=== PATIENT | male | born 1980 | race Caucasian/White ===

== ENCOUNTER 2017-05-11 11:20 | Emergency (ER) | payer SELFPAY ==
--- NOTE | 2017-05-11 11:39 | ER Document Report ---
ED Fall - General Chief Complaint: Rib Pain Stated Complaint: BACK PAIN Time Seen by Provider: 05/11/17 11:37 Notes: Patient slipped on wet pavement Monday and fell landing on cement, on his left side, primarily in the left rib region. It has been painful ever since, but made much worse yesterday when he suddenly sneezed and he felt a pop in the left lateral and posterior mid rib region. It hurts for him to breathe, but he does not feel short of breath. Denies any abdominal pain, in particular no pain in the left upper quadrant. No vomiting and no diarrhea. Denies fever. Hurts worse when he tries to stand up or bend or cough or sneeze. TRAVEL OUTSIDE OF THE [place] IN LAST 30 DAYS: No - Related data Allergies/Adverse Reactions: cefaclor [From Ceclor] Allergy (Verified 08/28/16 12:21) Past Medical History - Social History Smoking Status: Current Every Day Smoker Chew tobacco use (# tins/day): No Frequency of alcohol use: Social Drug Abuse: None Family History: Reviewed & Not Pertinent Patient has suicidal ideation: No Patient has homicidal ideation: No Past Surgical History: Reports: Hx Tonsillectomy Review of Systems - Review of Systems Notes: REVIEW OF SYSTEMS: CONSTITUTIONAL : Denies fever. EENT: Denies eye, ear, nose or mouth or throat pain or other symptoms. CARDIOVASCULAR: See HPI regarding pain in the left lateral rib region. No anterior cardiac type pain. RESPIRATORY: Denies cough, chest congestion, or shortness of breath. Only hurts to take a deep breath. GASTROINTESTINAL: Denies abdominal pain or nausea, vomiting, or diarrhea. No left upper quadrant pain or tenderness. GENITOURINARY: Denies difficulty or painful urinating, urinary frequency, blood in urine. MUSCULOSKELETAL: Denies back or neck pain. Denies joint pain or swelling. SKIN: Denies rash or skin lesions. NEUROLOGICAL: Denies LOC or altered mental status. Denies headache. Denies sensory loss or motor deficits. ALL OTHER SYSTEMS REVIEWED AND NEGATIVE. Physical Exam - Vital signs Vitals: Temp Pulse Resp BP Pulse Ox 97.9 F 97 20 153/100 H 100 05/11/17 11:24 05/11/17 11:24 05/11/17 11:24 05/11/17 11:24 05/11/17 11:24 Interpretation: Normal - Notes Notes: PHYSICAL EXAMINATION: GENERAL: Well-appearing, in no acute distress. Appears uncomfortable to move, stand up from sitting, etc. Vital signs are all essentially normal. HEAD: Atraumatic, normocephalic. NECK: Normal range of motion, supple. LUNGS: Breath sounds clear and equal bilaterally. Tender to palpate the left middle and lower ribs in the posterior lateral aspect of the rib cage. HEART: Regular rate and rhythm without murmurs. ABDOMEN: Soft, nontender. No guarding or rebound. No left upper quadrant tenderness. BACK: No tenderness throughout entire back. No spinal tenderness of any of the thoracic or lumbar vertebrae. EXTREMITIES: Normal range of motion without pain. NEUROLOGICAL: Normal speech, normal gait. Normal sensory, motor, and reflex exams. Awake, alert, and oriented x3. Cranial nerves normal. PSYCH: Normal mood, normal affect. SKIN: Warm, dry, no rashes. Course - Vital Signs Vital signs: Temp Pulse Resp BP Pulse Ox 98.1 F 102 H 17 140/101 H 93 05/11/17 12:19 05/11/17 12:19 05/11/17 12:19 05/11/17 12:19 05/11/17 12:19 Discharge - Discharge Clinical Impression: Fall with injury Qualifiers: Encounter type: initial encounter Qualified Code(s): W19.XXXA - Unspecified fall, initial encounter Fracture, rib Qualifiers: Encounter type: initial encounter Rib fracture type: single rib Fracture type: closed Laterality: right Qualified Code(s): S22.31XA - Fracture of one rib, right side, initial encounter for closed fracture Condition: Stable Disposition: HOME, SELF-CARE Additional Instructions: Rib Injuries and Fractures You have been diagnosed as having either bruised or broken ribs. These two injuries are treated in the same way. It will usually take four to six weeks for these injured ribs to heal. Sometimes, rib belts or anesthetic injections of the chest wall help reduce the pain. If you are using a rib belt, you should cough or take a deep breath at least every hour or two to prevent lung complications. You should not engage in any strenuous physical activity until released by your physician. The usual rule is "if it hurts, don't do it." Rib fractures can lead to serious lung complications including lung collapse, hemorrhage, and pneumonia. You should call the physician or return at once if any of the following occur: (1) Fever or chills. (2) Persistent cough, coughing up blood, or shortness of breath. (3) Increasing pain. (4) Weakness, lightheadedness, or fainting. MUSCLE STRAIN: You have strained a muscle -- torn the fibers within the muscle. This often occurs with strenuous exertion, or during an injury that suddenly stretches the muscle. The seriousness of a strain varies. Some strains heal within days, others cause problems for months. X-rays cannot show a muscle strain. X-rays are taken only if symptoms suggest that a fracture could be present. The usual treatment of a muscle strain is rest and ice packs. Sometimes, a sling, splint, or crutches may be necessary to rest the muscle. The muscle can be used again once pain subsides. Severe strains require a special exercise and stretching program to prevent permanent stiffness and disability. Your doctor will advise you if this will be necessary. Call the doctor immediately if pain or swelling becomes severe, or if numbness or discoloration develop. CONTUSION: Your injury has resulted in a contusion -- a crushing of the deep tissues. No injury to important structures was detected during the physician's exam. Contusions vary in the amount of pain they cause, and in the length of time required for healing. Typically, the area will become bruised, and will remain painful to touch for two or three weeks. However, most patients are back to working and playing within a few days. After the initial period of rest and cold-packs, your symptoms (together with the doctor's recommendations) will determine how rapidly you can get back to full activity. Usually this means "do what feels okay, but don't do things that hurt." If re-examination was recommended, it's important to follow up as instructed. Call the doctor or return any time if pain increases, if swelling becomes severe, if you develop numbness or weakness in an injured extremity, or if any other alarming symptoms occur. USE OF TYLENOL (ACETAMINOPHEN): Acetaminophen may be taken for pain relief or fever control. It's much safer than aspirin, offering a wider range of "safe" dosages. It is safe during . Some brand names are Tylenol, Panadol, Datril, Anacin 3, Tempra, and Liquiprin. Acetaminophen can be repeated every four hours. The following are maximum recommended dosages: WEIGHT Dose Drops Elixir Chewable( 80mg) (LBS.) drprs=droppers tsp=teaspoon >89 pounds or adults 650 mg to 900 mg Acetaminophen can be repeated every four hours. Maximum dose not to exceed 4000 mg a day. These maximum recommended dosages are slightly higher than the dosages written on the product container, but these dosages are very safe and below the toxic dosage for acetaminophen. WARM PACKS: After approximately two or 3 days, apply gentle heat (such as a heating pad or hot water bottle) for about 20 to 30 minutes about every two hours -- at least four times daily. Warmth and elevation will help you make a more rapid recovery, and will ease the pain considerably. Do not use HOT heat, and never apply heat for longer than 30 minutes. The continuous heat can invisibly damage skin and muscles -- even when no burn is seen on the surface. Damaged muscles can make you MORE sore. MUSCLE RELAXERS: Muscle relaxing medications are usually prescribed for acute muscle spasm or injury to the neck and back. They are often combined with antiinflammatory pain medication for increased relief. You may stop the muscle relaxer when the pain and stiffness have improved. Start the medication again if spasms recur. Muscle relaxers may cause drowsiness, especially with the first dose. Do not operate machinery or drive while under the effects of the medication. Most muscle relaxers last up to 24 hours. Do not combine the medication with alcohol. ORAL NARCOTIC MEDICATION: You have been given a prescription for pain control. This medication is a narcotic. It's best taken with food, as nausea can result if taken on an empty stomach. Don't operate machinery or drive within six hours of taking this medication. Do not combine this medicine with alcohol, or with any medication which can cause sedation (such as cold tablets or sleeping pills) unless you get permission from the physician. Narcotics tend to cause constipation. If possible, drink plenty of fluids and eat a diet high in fiber and fruits. FOLLOW-UP CARE: If you have been referred to a physician for follow-up care, call the physician s office for an appointment as you were instructed or within the next two days. If you experience worsening or a significant change in your symptoms, notify the physician immediately or return to the Emergency Department at any time for re-evaluation. Prescriptions: Cyclobenzaprine HCl [Flexeril 5 mg Tablet] 5 mg PO TID #20 tablet Oxycodone HCl/Acetaminophen [Percocet 5-325 mg Tablet] 1 - 2 tab PO Q4H PRN #15 tablet PRN Reason:
--- NOTE | 2017-05-11 12:05 | RADIOLOGY REPORT (SQ) ---
EXAM DESCRIPTION: RIBS LEFT W/PA CHEST COMPLETED DATE/TIME: 05/11/2017 11:47 am REASON FOR STUDY: fell on left lateral chest/ribs COMPARISON: None. TECHNIQUE: Frontal view of the chest and additional views of the left ribs acquired. NUMBER OF VIEWS: Five views LIMITATIONS: None. FINDINGS: FRONTAL CXR: There is mild subsegmental atelectasis in the lung bases. There is no pneumo thorax RIBS: On a single image there is questionable fracture of the left 10th ribs. There is possible that the low-density lines that cross the rib represent soft tissue shadows. OTHER: No other significant finding. IMPRESSION: Possible left 10th rib fracture. This is only seen on a single view. COMMENT: SITE OF TRAUMA/COMPLAINT MARKED/STAMP COMPLETED: No TECHNICAL DOCUMENTATION: JOB ID: [id number] [employer]- All Rights Reserved
[2017-05-11 12:21] VITALS: BP 140/101
== END 2017-05-11 12:34 | disposition home or self-care (01) ==
LOC: ER 11:20
DX: S22.31XA Fracture of one rib, right side, initial encounter for closed fracture (principal); W01.0XXA Fall on same level from slipping, tripping and stumbling without subsequent striking against object, initial encounter; F17.200 Nicotine dependence, unspecified, uncomplicated; Z88.1 Allergy status to other antibiotic agents
CPT/HCPCS: 99283

== ENCOUNTER 2018-09-22 10:22 | Inpatient (IN) | payer SELFPAY ==
[2018-09-22] MEDS ORDERED: NORMAL SALINE 1000 ML 1,000 ML IV ONE (10:35)
--- NOTE | 2018-09-22 10:37 | ER Document Report ---
ED Medical Screen (RME) - General Chief Complaint: Vomiting/Diarrhea Stated Complaint: VOMITING Time Seen by Provider: 09/22/18 10:34 Mode of Arrival: Ambulatory Information source: Patient TRAVEL OUTSIDE OF THE [place] IN LAST 30 DAYS: No - HPI Patient complains to provider of: vomiting blood Onset: Yesterday - pt with episode of hematemesis and black diarrhea starting yesterday - Related Data Allergies/Adverse Reactions: cefaclor [From Ceclor] Allergy (Verified 09/22/18 10:23) Past Medical History - Social History Chew tobacco use (# tins/day): No Frequency of alcohol use: 10 drinks aday Drug Abuse: None Renal/ Medical History: Denies: Hx Peritoneal Dialysis Past Surgical History: Reports: Hx Tonsillectomy Physical Exam - Vital signs Vitals: Temp Pulse Resp BP Pulse Ox 97.9 F 112 H 18 169/96 H 98 09/22/18 10:25 09/22/18 10:25 09/22/18 10:25 09/22/18 10:25 09/22/18 10:25 Course - Vital Signs Vital signs: Temp Pulse Resp BP Pulse Ox 97.9 F 112 H 18 169/96 H 98 09/22/18 10:25 09/22/18 10:25 09/22/18 10:25 09/22/18 10:25 09/22/18 10:25
--- NOTE | 2018-09-22 11:25 | ER Document Report ---
ED GI/ - General Mode of Arrival: Ambulatory Information source: Patient TRAVEL OUTSIDE OF THE [place] IN LAST 30 DAYS: No <WILLIAM CANNON - Last Filed: 09/22/18 14:59> <TAVON OLIVIER - Last Filed: 09/22/18 19:28> - General Chief Complaint: Vomiting/Diarrhea Stated Complaint: VOMITING Time Seen by Provider: 09/22/18 10:34 Notes: 38-year-old male who presents to the emergency department today with complaints of noticing blood in his vomit and stool. Patient states he is a heavy drinker, stating that he drinks "10 shots of rum a day". Patient states that he has not been abruptly vomiting blood, his vomit is always after a coughing spell. Patient states he believes he has a cold as he has had some nasal congestion with this cough. Patient states the rest of his family has also had these same respiratory symptoms. Patient states that he estimates when he vomits up the blood it is about a handful each time. Patient states that about 1 week ago he noticed some blood in his nose but has not had any other nosebleeds and has not had any blood in his snot. Patient states that his stool is black in color, stating that it is sticking to the sides of the toilet. Patient denies history of GI bleeds and denies heavy usage of NSAIDs. Patient states he has had mild abdominal pain as well. (WILLIAM CANNON) - Related Data Allergies/Adverse Reactions: cefaclor [From Ceclor] Allergy (Verified 09/22/18 10:23) Past Medical History - General Information source: Patient - Social History Smoking Status: Current Every Day Smoker Cigarette use (# per day): Yes Chew tobacco use (# tins/day): No Frequency of alcohol use: Heavy - "10 shots a day" Drug Abuse: None Lives with: Family Family History: Reviewed & Not Pertinent Patient has suicidal ideation: No Patient has homicidal ideation: No Renal/ Medical History: Denies: Hx Peritoneal Dialysis Past Surgical History: Reports: Hx Tonsillectomy <WILLIAM CANNON - Last Filed: 09/22/18 14:59> Review of Systems - Review of Systems Constitutional: No symptoms reported EENT: See HPI, Nose congestion, Other - Epistaxis Cardiovascular: No symptoms reported Respiratory: See HPI, Cough Gastrointestinal: See HPI, Abdominal pain, Vomiting, Blood in vomit, Black s tools Genitourinary: No symptoms reported Male Genitourinary: No symptoms reported Musculoskeletal: No symptoms reported Skin: No symptoms reported Hematologic/Lymphatic: No symptoms reported Neurological/Psychological: No symptoms reported -: Yes All other systems reviewed and negative <WILLIAM CANNON - Last Filed: 09/22/18 14:59> Physical Exam <WILLIAM CANNON - Last Filed: 09/22/18 14:59> - Vital signs Vitals: Temp Pulse Resp BP Pulse Ox 97.9 F 112 H 18 169/96 H 98 09/22/18 10:25 09/22/18 10:25 09/22/18 10:25 09/22/18 10:25 09/22/18 10:25 - Notes Notes: PHYSICAL EXAM GENERAL: Alert, interacts well. No acute distress. HEAD: Normocephalic, atraumatic. EYES: Pupils equal, round, and reactive to light. Extraocular movements intact. ENT: Oral mucosa moist, tongue midline, no intraoral lesions or bleeding. Nares patent without any active bleeding/dried blood, no nasal septal hematoma, TM's intact. NECK: Full range of motion. Supple. Trachea midline. LUNGS: Clear to auscultation bilaterally, no wheezes, rales, or rhonchi. No respiratory distress. HEART: Regular rate and rhythm. No murmurs, gallops, or rubs. ABDOMEN: Soft, non-tender, reducible umbilical hernia, no caput medusae. Non- distended. Bowel sounds present in all 4 quadrants. No guarding, rigidity, or rebound. RECTAL: No external or internal hemorrhoids or fissures. Skin tags present. Stool does appear to be melanotic which was confirmed with point of care fecal occult blood testing. No bright red blood. EXTREMITIES: Moves all 4 extremities spontaneously. No edema, radial and dorsalis pedis pulses 2/4 bilaterally. No cyanosis. NEUROLOGICAL: Alert and oriented x3. Normal speech. PSYCH: Normal affect, normal mood. SKIN: Warm, dry, normal turgor. No rashes. Ecchymosis inferior to the left eye which appears to be old. (WILLIAM CANNON) Course - Laboratory Result Diagrams: 09/22/18 11:34 09/22/18 11:34 <WILLIAM CANNON - Last Filed: 09/22/18 14:59> - Laboratory Result Diagrams: 09/22/18 16:30 09/22/18 11:34 <TAVON OLIVIER - Last Filed: 09/22/18 19:28> - Re-evaluation Re-evalutation: 09/22/18 14:[address] Black who agrees to admit the patient for alcoholic gastritis and a GI bleed. (WILLIAM CANNON) 09/22/18 15:14 CBC shows leukocytosis 11.1, there is no anemia, hemoglobin is 15.1, stool is heme positive and appears melanotic, patient has had 2 more bowel movements here and they have not been grossly bloody, patient states that they have not looked bloody to him, INR is prolonged at 1.27, chemistries show elevated total bilirubin at 3.3, elevated direct bilirubin at 1.4, AST is elevated at 138, ALT normal at 61, alk phos elevated at 157. Alcohol level is undetectable, patient does not have any symptoms of withdrawal at this point. Chest x-ray shows reactive airway disease versus viral syndrome. Patient has been typed and screened. No blood will be given at this time. This is consistent with alcoholic gastritis, I have started a Protonix bolus and drip, patient will be admitted to Dr. Jakob Black, I did discuss the patient with Dr. Rodriguez who agrees to consult if necessary, both I and the hospitalist understand that the patient may have varices although I doubt this at this time and that he would be unable to band the varices should they rupture. (TAVON OLIVIER) - Vital Signs Vital signs: Temp Pulse Resp BP Pulse Ox 99.2 F 93 16 135/72 H 99 09/22/18 17:15 09/22/18 17:15 09/22/18 17:15 09/22/18 17:15 09/22/18 17:15 - Laboratory Laboratory results interpreted by me: 09/22/18 09/22/18 09/22/18 11:34 11:34 11:34 WBC 11.1 H MCV 98 H MCH 33.9 H Plt Count 149 L Lymphocytes % 12.9 L Absolute Neutrophils 8.6 H PT 16.5 H Glucose 123 H Total Bilirubin 3.3 H Direct Bilirubin 1.4 H AST 138 H Alkaline Phosphatase 157 H Discharge <WILLIAM CANNON - Last Filed: 09/22/18 14:59> - Discharge Admitting Provider: [facility] Admitted: Telemetry <TAVON OLIVIER - Last Filed: 09/22/18 19:28> - Discharge Clinical Impression: Upper GI bleed Alcoholic gastritis with bleeding Qualifiers: Chronicity: acute Qualified Code(s): K29.21 - Alcoholic gastritis with bleeding Condition: Fair Disposition: ADMITTED INPATIENT Scribe Attestation: 09/22/18 19:28 I personally performed the services described in the documentation, reviewed and edited the documentation which was dictated to the scribe in my presence, and it accurately records my words and actions. (TAVON OLIVIER) Scribe Documentation - Scribe Written by Johnieibe:: Tiffany Mullen, 09/22/2018 1427 acting as scribe for :: Adam <WILLIAM CANNON - Last Filed: 09/22/18 14:59>
[2018-09-22] MEDS ORDERED: ONDANSETRON HCL INJ/PF 4 MG/2 ML SDV IV ONE (11:28)
[2018-09-22 11:49] LABS: ABSOLUTE BASOPHILS # (AUTO) 0.1 10^3/uL (0.0-0.2); ABSOLUTE EOSINOPHILS # (AUTO) 0.1 10^3/uL (0.0-0.6); ABSOLUTE LYMPHOCYTES (AUTO) 1.4 10^3/uL (0.5-4.7); ABSOLUTE NEUT (AUTO) 8.6 10^3/uL (1.7-8.2); BASOPHILS % (AUTO) 0.6 % (0-2); EOSINOPHILS % (AUTO) 0.6 % (0-6); HEMATOCRIT 43.5 % (37.9-51.0); HEMOGLOBIN 15.1 g/dL (13.5-17.0); LYMPHOCYTES % (AUTO) 12.9 % (13-45); MEAN CORPUSCULAR HEMOGLOBIN 33.9 pg (27.0-33.4); MEAN CORPUSCULAR HGB CONC 34.7 g/dL (32.0-36.0); MEAN CORPUSCULAR VOLUME 98 fl (80-97); MONOCYTES % (AUTO) 8.7 % (3-13); PLATELET COUNT 149 10^3/uL (150-450); RED BLOOD COUNT 4.44 10^6/uL (4.35-5.55); RED CELL DISTRIBUTION WIDTH 13.7 % (11.5-14.0); SEGMENTED NEUTROPHILS % (AUTO) 77.2 % (42-78); TOTAL CELLS COUNTED % (AUTO) 100 %; WHITE BLOOD COUNT 11.1 10^3/uL (4.0-10.5)
[2018-09-22 11:56] LABS: INTERNATIONAL RATION (INR) 1.27; PROTHROMBIN TIME 16.5 SEC (11.4-15.4)
[2018-09-22 12:02] LABS: ALANINE AMINOTRANSFERASE 61 U/L (21-72); ALBUMIN 3.6 g/dL (3.5-5.0); ALKALINE PHOSPHATASE 157 U/L (38-126); ANION GAP 10 (5-19); ASPARTATE AMINO TRANSFERASE 138 U/L (17-59); BILIRUBIN,DIRECT 1.4 mg/dL (0.0-0.4); BILIRUBIN,TOTAL 3.3 mg/dL (0.2-1.3); BLOOD UREA NITROGEN 11 mg/dL (7-20); CALCIUM 9.2 mg/dL (8.4-10.2); CARBON DIOXIDE 23 mmol/L (22-30); CHLORIDE 106 mmol/L (98-107); GLUCOSE 123 mg/dL (75-110); POTASSIUM 3.9 mmol/L (3.6-5.0); SODIUM 138.8 mmol/L (137-145); TOTAL PROTEIN 7.8 g/dL (6.3-8.2)
--- NOTE | 2018-09-22 12:06 | RADIOLOGY REPORT (SQ) ---
EXAM DESCRIPTION: CHEST 2 VIEWS COMPLETED DATE/TIME: 09/22/2018 11:52 am REASON FOR STUDY: cough with post-tussive emesis and hematemesis COMPARISON: None. NUMBER OF VIEWS: Two view. TECHNIQUE: Frontal and lateral radiographic views of the chest acquired. LIMITATIONS: None. FINDINGS: LUNGS AND PLEURA: Peribronchial cuffing and interstitial changes. No consolidation, effus ion, or pneumothorax. MEDIASTINUM AND HILAR STRUCTURES: No masses. No contour abnormalities. HEART AND VASCULAR STRUCTURES: Heart normal in size and contour. No evidence for failure. BONES: No acute findings. HARDWARE: None in the chest. OTHER: No other significant finding. IMPRESSION: REACTIVE AIRWAY DISEASE VERSUS VIRAL SYNDROME. NO CONSOLIDATION. TECHNICAL DOCUMENTATION: JOB ID: [id number] [employer]- All Rights Reserved Reading location - IP/workstation name: [email or web address]
[2018-09-22] MEDS ORDERED: PANTOPRAZOLE SODIUM 40 MG VIAL IV PRN ×2 (14:49→15:46)
[2018-09-22] MEDS ORDERED: PANTOPRAZOLE SODIUM 40 MG VIAL IV ONE (14:49)
[2018-09-22 16:49] LABS: ABSOLUTE BASOPHILS # (AUTO) 0.1 10^3/uL (0.0-0.2); ABSOLUTE EOSINOPHILS # (AUTO) 0.1 10^3/uL (0.0-0.6); ABSOLUTE LYMPHOCYTES (AUTO) 1.4 10^3/uL (0.5-4.7); ABSOLUTE MONOCYTES (AUTO) 0.9 10^3/uL (0.1-1.4); ABSOLUTE NEUT (AUTO) 9.1 10^3/uL (1.7-8.2); BASOPHILS % (AUTO) 0.6 % (0-2); EOSINOPHILS % (AUTO) 0.8 % (0-6); HEMOGLOBIN 14.5 g/dL (13.5-17.0); LYMPHOCYTES % (AUTO) 11.8 % (13-45); MEAN CORPUSCULAR HEMOGLOBIN 33.9 pg (27.0-33.4); MEAN CORPUSCULAR HGB CONC 34.4 g/dL (32.0-36.0); MEAN CORPUSCULAR VOLUME 98 fl (80-97); MONOCYTES % (AUTO) 7.6 % (3-13); PLATELET COUNT 143 10^3/uL (150-450); RED BLOOD COUNT 4.27 10^6/uL (4.35-5.55); RED CELL DISTRIBUTION WIDTH 13.6 % (11.5-14.0); SEGMENTED NEUTROPHILS % (AUTO) 79.2 % (42-78); TOTAL CELLS COUNTED % (AUTO) 100 %; WHITE BLOOD COUNT 11.5 10^3/uL (4.0-10.5)
[2018-09-22] MEDS: NORMAL SALINE 1000 ML 1,000 ML with POTASSIUM CHLORIDE 20 MEQ, MAGNESIUM SULFATE 8 MEQ,... IV SCH ×5 (18:08)
--- NOTE | 2018-09-22 19:28 | PDOC H&P ---
History of Present Illness History of Present Illness: SONIA ROBERTS is a 38 year old male with no significant PMH aside from alcohol use disorder who came in because of posttussive vomiting. Patient says that he drinks 10 shots of rum a day and has been drinking for 10 years. He says his last drink was yesterday. He says he has been having minimally productive cough in the past 5 days. He does admit to recent sick contacts as a lot of family members are having URTI symptoms at home. He says that yesterday morning, he vomited twice and noted bright red blood on the vomitus (~4 tbsp of blood) on the 2nd episode. He reports having loose stools, 5 episodes/day in the past 3 days. He said he had one episode of dark but non- tarry BM yesterday. There has been no recurrence of bloody vomitus today. He denies any abdominal pain. No nausea or vomiting at this time. No fever or chills. He denies jaundice. Past Surgical History Past Surgical History: Reports: Tonsillectomy Social History Lives with: Family Smoking Status: Current Every Day Smoker Family History Family History: Reviewed & Not Pertinent Parental Family History Reviewed: Yes - no premature CAD Children Family History Reviewed: No Sibling(s) Family History Reviewed.: No Medication/Allergy Home Medications: Chlordiazepoxide HCl [Librium 10 mg Capsule] 1 cap PO TID #30 cap 03/01/16 Cyclobenzaprine HCl [Flexeril 5 mg Tablet] 5 mg PO TID #20 tablet 05/11/17 Oxycodone HCl/Acetaminophen [Percocet 5-325 mg Tablet] 1 - 2 tab PO Q4H PRN #15 tablet 05/11/17 Allergies/Adverse Reactions: cefaclor [From [facility]] Allergy (Verified 09/22/18 10:23) Review of Systems All systems: reviewed and no additional remarkable complaints except as stated - as mentioned in HPI Physical Exam Vital Signs: Temp Pulse Resp BP Pulse Ox 97.9 F 112 H 18 169/96 H 98 09/22/18 10:25 09/22/18 10:25 09/22/18 10:25 09/22/18 10:25 09/22/18 10:25 Intake & Output 09/21/18 09/22/18 09/23/18 06:59 06:59 06:59 Intake Total 1000 Balance 1000 Weight 227 lb 4.745 oz General appearance: PRESENT: no acute distress, well-developed, well-nourished Head exam: PRESENT: atraumatic, normocephalic Eye exam: PRESENT: conjunctiva pink, EOMI, PERRLA. ABSENT: scleral icterus Ear exam: PRESENT: normal external ear exam Neck exam: ABSENT: carotid bruit, JVD, lymphadenopathy, thyromegaly Respiratory exam: PRESENT: clear to auscultation shanique. ABSENT: rales, rhonchi, wheezes Cardiovascular exam: PRESENT: RRR. ABSENT: diastolic murmur, rubs, systolic murmur Pulses: PRESENT: normal dorsalis pedis pul GI/Abdominal exam: PRESENT: normal bowel sounds, soft. ABSENT: distended, guarding, mass, organolmegaly, rebound, tenderness Rectal exam: PRESENT: deferred Neurological exam: PRESENT: alert, awake, oriented to person, oriented to place, oriented to time, oriented to situation, CN II-XII grossly intact. ABSENT: motor sensory deficit Results Laboratory Results: 09/22/18 11:34 09/22/18 11:34 09/22/18 09/22/18 09/22/18 11:34 11:34 11:34 WBC 11.1 H RBC 4.44 Hgb 15.1 Hct 43.5 MCV 98 H MCH 33.9 H MCHC 34.7 RDW 13.7 Plt Count 149 L Seg Neutrophils % 77.2 Lymphocytes % 12.9 L Monocytes % 8.7 Eosinophils % 0.6 Basophils % 0.6 Absolute Neutrophils 8.6 H Absolute Lymphocytes 1.4 Absolute Monocytes 1.0 Absolute Eosinophils 0.1 Absolute Basophils 0.1 Sodium 138.8 Potassium 3.9 Chloride 106 Carbon Dioxide 23 Anion Gap 10 BUN 11 Creatinine 0.68 Est GFR ( Amer) > 60 Est GFR (Non-Af Amer) > 60 Glucose 123 H Calcium 9.2 Total Bilirubin 3.3 H AST 138 H ALT 61 Alkaline Phosphatase 157 H Total Protein 7.8 Albumin 3.6 Blood Type A POSITIVE Antibody Screen NEGATIVE Impressions: Chest X-Ray 09/22/18 11:25 IMPRESSION: REACTIVE AIRWAY DISEASE VERSUS VIRAL SYNDROME. NO CONSOLIDATION. Assessment & Plan - Diagnosis (1) Hematemesis Is this a current diagnosis for this admission?: Yes Plan: Differentials include alcohol-induced gastritis vs PUD vs variceal in origin. Will continue Protonix drip. Surgery consulted for possible EGD tomorrow. Hemoglobin is 15.1. Will continue to trend Hb. (2) Alcohol use disorder Is this a current diagnosis for this admission?: Yes Plan: Will start patient on banana bag. We will continue to monitor for signs of withdrawal. Ativan as needed. (3) Elevated liver enzymes Is this a current diagnosis for this admission?: Yes Plan: Patient has elevated AST, bilirubin and alk phos. INR is also elevated. Right upper quadrant ultrasound ordered. Alcoholic hepatitis unlikely due to absence of fever, abdominal pain and leukocytosis. - Time Time Spent: 30 to 50 Minutes
[2018-09-22] MEDS: LORAZEPAM INJ 2 MG/1 ML VIAL IV PRN (21:16)
[2018-09-22] MEDS: NORMAL SALINE 1000 ML 1,000 ML IV PRN (21:16)
--- NOTE | 2018-09-22 21:19 | RADIOLOGY REPORT (SQ) ---
EXAM DESCRIPTION: US ABDOMEN COMPLETED DATE/TME: 09/22/2018 19:30 CLINICAL HISTORY: 38 years, Male, hyperbilirubinemia,elevated alk phos COMPARISON: None. TECHNIQUE: LIMITATIONS: None. FINDINGS: The liver is hyperechogenic, compatible with fatty infiltration and/or hepatocellular disease. No evidence of biliary tree dilatation. There is possible mild gallbladder wall thickening. There are no gallstones, and the nanotechnology engineering technologist reported a negative sonographic Liu sign. The kidneys and spleen are unremarkable. The pancreas was not well visualized due to overlying bowel gas. The abdominal aorta is normal in caliber. IMPRESSION: Hyperechogenic liver as described. copyright 2010 [email or web address] [facility] [employer]- All Rights Reserved
[2018-09-23] MEDS ORDERED: KETOROLAC TROMETHAMINE INJ/PF 30 MG/1 ML SDV IV PRN (01:34)
[2018-09-23] MEDS: LORAZEPAM INJ 2 MG/1 ML VIAL IV PRN ×3 (03:37→23:33)
[2018-09-23] MEDS ORDERED: PANTOPRAZOLE SODIUM 40 MG VIAL IV ONE (03:50)
[2018-09-23 05:25] LABS: ABSOLUTE EOSINOPHILS # (AUTO) 0.3 10^3/uL (0.0-0.6); ABSOLUTE LYMPHOCYTES (AUTO) 1.7 10^3/uL (0.5-4.7); ABSOLUTE MONOCYTES (AUTO) 0.7 10^3/uL (0.1-1.4); ABSOLUTE NEUT (AUTO) 5.4 10^3/uL (1.7-8.2); BASOPHILS % (AUTO) 0.5 % (0-2); EOSINOPHILS % (AUTO) 3.4 % (0-6); HEMATOCRIT 38.3 % (37.9-51.0); HEMOGLOBIN 13.1 g/dL (13.5-17.0); LYMPHOCYTES % (AUTO) 20.5 % (13-45); MEAN CORPUSCULAR HGB CONC 34.3 g/dL (32.0-36.0); MEAN CORPUSCULAR VOLUME 99 fl (80-97); MONOCYTES % (AUTO) 8.7 % (3-13); PLATELET COUNT 108 10^3/uL (150-450); RED BLOOD COUNT 3.86 10^6/uL (4.35-5.55); RED CELL DISTRIBUTION WIDTH 13.6 % (11.5-14.0); SEGMENTED NEUTROPHILS % (AUTO) 66.9 % (42-78); TOTAL CELLS COUNTED % (AUTO) 100 %; WHITE BLOOD COUNT 8.1 10^3/uL (4.0-10.5)
[2018-09-23 05:50] LABS: ALANINE AMINOTRANSFERASE 48 U/L (21-72); ALBUMIN 2.7 g/dL (3.5-5.0); ALKALINE PHOSPHATASE 111 U/L (38-126); ANION GAP 6 (5-19); ASPARTATE AMINO TRANSFERASE 106 U/L (17-59); BILIRUBIN,DIRECT 1.3 mg/dL (0.0-0.4); BILIRUBIN,TOTAL 3.2 mg/dL (0.2-1.3); BLOOD UREA NITROGEN 11 mg/dL (7-20); CALCIUM 8.3 mg/dL (8.4-10.2); CARBON DIOXIDE 23 mmol/L (22-30); CHLORIDE 112 mmol/L (98-107); GLUCOSE 90 mg/dL (75-110); POTASSIUM 4.2 mmol/L (3.6-5.0); SODIUM 140.8 mmol/L (137-145); TOTAL PROTEIN 6.3 g/dL (6.3-8.2)
--- NOTE | 2018-09-23 08:38 | PDOC CONSULTATION ---
Consultation Consult Date: 09/23/18 Consult reason:: Upper GI bleeding History of Present Illness Admission Date/PCP: 09/22/18 15:21 Patient complains of: Coffee ground emesis. History of Present Illness: SONIA ROBERTS is a 38 year old male with a 1 day history of nausea, vomiting, and coffee-ground emesis. He is seen at the request of the hospitalist service. The patient has a history of alcohol abuse. He has never had symptoms like this before. The patient has never had an EGD. The patient had several episodes of coffee-ground emesis yesterday. When his symptoms did not improve on its own, he presented to the emergency department for evaluation. The patient denies significant abdominal pain. The patient denies orthostasis, dizziness, headache, chest pain, shortness of breath, blurry vision, fatigue, malaise, hematochezia, or melena he did Past Medical History Medical History: Other - alcohol dependence Past Surgical History Past Surgical History: Reports: Tonsillectomy Social History Lives with: Family Smoking Status: Current Every Day Smoker Cigarettes Packs Per Day: 0.5 Frequency of Alcohol Use: Heavy - 10 shots of liquor per day Hx Recreational Drug Use: No Drugs: None Hx Prescription Drug Abuse: No Family History Family History: Reviewed & Not Pertinent Parental Family History Reviewed: Yes Children Family History Reviewed: Yes Sibling(s) Family History Reviewed.: Yes Medication/Allergy Home Medications: Chlordiazepoxide HCl [Librium 10 mg Capsule] 1 cap PO TID #30 cap 03/01/16 Cyclobenzaprine HCl [Flexeril 5 mg Tablet] 5 mg PO TID #20 tablet 05/11/17 Oxycodone HCl/Acetaminophen [Percocet 5-325 mg Tablet] 1 - 2 tab PO Q4H PRN #15 tablet 05/11/17 Allergies/Adverse Reactions: cefaclor [From [facility]] Allergy (Verified 09/22/18 10:23) Review of Systems Constitutional: PRESENT: weakness. ABSENT: chills, fever(s), headache(s) Cardiovascular: PRESENT: chest pain, palpitations Respiratory: PRESENT: cough, dyspnea Gastrointestinal: PRESENT: coffee ground emesis, heartburn, nausea, vomiting. ABSENT: abdominal pain Genitourinary: ABSENT: dysuria Musculoskeletal: ABSENT: back pain Integumentary: ABSENT: pruritus, rash Neurological: ABSENT: convulsions, dizziness, syncope Psychiatric: ABSENT: anxiety, depression Endocrine: ABSENT: cold intolerance, heat intolerance Hematologic/Lymphatic: ABSENT: easy bleeding, easy bruising Physical Exam Vital Signs: Temp Pulse Resp BP Pulse Ox 99.1 F 102 H 18 125/93 H 99 09/23/18 03:31 09/23/18 03:31 09/23/18 03:31 09/23/18 03:31 09/23/18 03:31 Intake & Output 09/22/18 09/23/18 09/24/18 06:59 06:59 06:59 Intake Total 1387 Balance 1387 Weight 104.1 kg General appearance: PRESENT: obese Head exam: PRESENT: atraumatic, normocephalic Eye exam: PRESENT: EOMI, PERRLA. ABSENT: scleral icterus Mouth exam: PRESENT: moist, neck supple Teeth exam: ABSENT: poor dentation Neck exam: ABSENT: meningismus, tenderness, thyromegaly, tracheal deviation Respiratory exam: PRESENT: clear to auscultation shanique, unlabored. ABSENT: chest wall tenderness, rhonchi, tachypnea, wheezes Cardiovascular exam: PRESENT: RRR Pulses: PRESENT: normal radial pulses Vascular exam: PRESENT: normal capillary refill. ABSENT: pallor GI/Abdominal exam: PRESENT: soft. ABSENT: distended, guarding, rebound, tenderness Extremities exam: ABSENT: clubbing Musculoskeletal exam: ABSENT: deformity Neurological exam: PRESENT: alert, awake, oriented to person, oriented to place Psychiatric exam: ABSENT: agitated, anxious, depressed Focused psych exam: ABSENT: delusional Skin exam: ABSENT: cyanosis, erythema, jaundice Results Laboratory Results: 09/23/18 04:53 09/23/18 04:53 09/22/18 09/22/18 09/22/18 11:34 11:34 11:34 WBC 11.1 H RBC 4.44 Hgb 15.1 Hct 43.5 MCV 98 H MCH 33.9 H MCHC 34.7 RDW 13.7 Plt Count 149 L Seg Neutrophils % 77.2 Lymphocytes % 12.9 L Monocytes % 8.7 Eosinophils % 0.6 Basophils % 0.6 Absolute Neutrophils 8.6 H Absolute Lymphocytes 1.4 Absolute Monocytes 1.0 Absolute Eosinophils 0.1 Absolute Basophils 0.1 Sodium 138.8 Potassium 3.9 Chloride 106 Carbon Dioxide 23 Anion Gap 10 BUN 11 Creatinine 0.68 Est GFR ( Amer) > 60 Est GFR (Non-Af Amer) > 60 Glucose 123 H Calcium 9.2 Magnesium Total Bilirubin 3.3 H AST 138 H ALT 61 Alkaline Phosphatase 157 H Total Protein 7.8 Albumin 3.6 Blood Type A POSITIVE Antibody Screen NEGATIVE 09/22/18 09/23/18 09/23/18 16:30 04:53 04:53 WBC 11.5 H 8.1 RBC 4.27 L 3.86 L Hgb 14.5 13.1 L Hct 42.0 38.3 MCV 98 H 99 H MCH 33.9 H 34.0 H MCHC 34.4 34.3 RDW 13.6 13.6 Plt Count 143 L 108 L Seg Neutrophils % 79.2 H 66.9 Lymphocytes % 11.8 L 20.5 Monocytes % 7.6 8.7 Eosinophils % 0.8 3.4 Basophils % 0.6 0.5 Absolute Neutrophils 9.1 H 5.4 Absolute Lymphocytes 1.4 1.7 Absolute Monocytes 0.9 0.7 Absolute Eosinophils 0.1 0.3 Absolute Basophils 0.1 0.0 Sodium 140.8 Potassium 4.2 Chloride 112 H Carbon Dioxide 23 Anion Gap 6 BUN 11 Creatinine 0.77 Est GFR ( Amer) > 60 Est GFR (Non-Af Amer) > 60 Glucose 90 Calcium 8.3 L Magnesium 1.8 Total Bilirubin 3.2 H AST 106 H ALT 48 Alkaline Phosphatase 111 Total Protein 6.3 Albumin 2.7 L Blood Type Antibody Screen Impressions: Chest X-Ray 09/22/18 11:25 IMPRESSION: REACTIVE AIRWAY DISEASE VERSUS VIRAL SYNDROME. NO CONSOLIDATION. Abdomen Ultrasound 09/22/18 19:30 IMPRESSION: Hyperechogenic liver as described. copyright 2010 [employer]- All Rights Reserved Assessment & Plan - Diagnosis (1) Alcohol use disorder Is this a current diagnosis for this admission?: Yes (2) Alcoholic gastritis with bleeding Qualifiers: Chronicity: acute Qualified Code(s): K29.21 - Alcoholic gastritis with bleeding Is this a current diagnosis for this admission?: Yes - Plan Summary Plan Summary: This is a 38-year-old male with coffee-ground emesis. The patient is an alcoholic and currently drinks every day. Patient also uses occasional NSAIDs and smokes half a pack of cigarettes per day. The patient very likely has gastritis. Continue PPIs. Plan for EGD today. If abnormalities like gastric varices or Demetrice-Lund tears are found, the patient will require transfer to a higher level of care.
[2018-09-23] MEDS ORDERED: ONDANSETRON HCL INJ/PF 4 MG/2 ML SDV ONE (09:20)
[2018-09-23] MEDS ORDERED: DIPHENHYDRAMINE HCL 50 MG/ML VIAL ONE (09:20)
[2018-09-23] MEDS ORDERED: GLUCAGON,HUMAN RECOMB 1 MG INJ ONE (09:21)
[2018-09-23] MEDS ORDERED: NALOXONE HCL INJ/PF 0.4 MG/1 ML SDV ONE (09:21)
[2018-09-23] MEDS ORDERED: EPINEPHRINE INJ 1 MG/10 ML DISP.SYRIN ONE (09:21)
[2018-09-23] MEDS ORDERED: FLUMAZENIL INJ 0.5 MG/5 ML VIAL ONE (09:21)
[2018-09-23] MEDS: MIDAZOLAM 2 MG/2 ML INJ ONE ×3 (10:00→10:06)
[2018-09-23] MEDS: FENTANYL CITRATE INJ/PF 100 MCG/2 ML AMPUL ONE ×2 (10:04→10:08)
--- NOTE | 2018-09-23 10:30 | Operative Report ---
Nonrecallable Operative Report DATE OF SURGERY: 09/23/18 PREOPERATIVE DIAGNOSIS: Coffee-ground emesis POSTOPERATIVE DIAGNOSIS: 1. Severe gastritis. 2. Mild duodenitis. 3. Mild reflux esophagitis. 4. No evidence of esophageal varices. 5. No active bleeding. 6. 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 Antrum. 2. Distal esophagus COMPLICATIONS: None apparent ESTIMATED BLOOD LOSS: Minimal PROCEDURE: Implants: None. Procedure in detail: After informed consent was obtained, the patient was brought to the endoscopy suite and laid in the left lateral decubitus position. The endoscope was passed down the oropharynx, down the esophagus, and into the stomach. No active bleeding was identified in the esophagus. Upon entry into the stomach, there was noted to be diffuse gastritis throughout the stomach. The scope was pushed through the pylorus and into the duodenum. The second portion of the duodenum appeared normal, however there was mild duodenitis in the first portion. The scope was pulled back into the antrum. Petechiae, prominent gastric folds, and obvious gastritis was present throughout the stomach. Biopsy was taken in the antrum to rule out H. pylori infection. A retroflexion maneuver was then performed. Severe gastritis was also noted in the cardia of the stomach. No active bleeding could be identified in the esop hagus, stomach, or duodenum. There were however small, early gastric varices present in the cardia of the stomach. Again, I could identify no active bleeding source. The scope was pulled up into the distal esophagus where mild distal esophagitis was identified. Biopsy was taken at the most affected portion. The scope was then withdrawn slowly up the remainder of the esophagus. The remainder of the esophagus was smooth in contour without masses, lesions, or evidence of varices. The scope was removed from the patient's oropharynx, and the procedure was concluded. All sponge, instrument, and needle counts were correct x2. Condition: Stable.
[2018-09-23] MEDS: NORMAL SALINE 1000 ML 1,000 ML IV PRN ×2 (10:36→17:50)
--- NOTE | 2018-09-23 11:49 | PDOC PROGRESS REPORT ---
Subjective Progress Note for:: 09/23/18 Subjective:: SONIA ROBERTS is a 38 year old male with no significant PMH aside from alcohol use disorder who presented with hematemesis and was admitted for possible upper GI bleed. No recurrence of hematemesis but patient's hemoglobin did trend down from 15.1 to 13.1. He required 2 doses of Ativan overnight. He denies abdominal pain or nausea on encounter. He is going for EGD today. Reason For Visit: HEMATEMESIS,ALCOHOL ABUSE,HYPERBILIRUBINEMIA Physical Exam Vital Signs: Temp Pulse Resp BP Pulse Ox 98.0 F 102 H 16 115/89 H 94 09/23/18 07:16 09/23/18 10:40 09/23/18 10:40 09/23/18 10:40 09/23/18 10:40 Intake & Output 09/22/18 09/23/18 09/24/18 06:59 06:59 06:59 Intake Total 1387 400 Balance 1387 400 Weight 229 lb 8.019 oz General appearance: PRESENT: no acute distress, well-developed, well-nourished Head exam: PRESENT: atraumatic, normocephalic Eye exam: PRESENT: conjunctiva pink, EOMI, PERRLA. ABSENT: scleral icterus Ear exam: PRESENT: normal external ear exam Neck exam: ABSENT: carotid bruit, JVD, lymphadenopathy, thyromegaly Respiratory exam: PRESENT: clear to auscultation shanique. ABSENT: rales, rhonchi, wheezes Cardiovascular exam: PRESENT: RRR. ABSENT: diastolic murmur, rubs, systolic murmur Pulses: PRESENT: normal dorsalis pedis pul GI/Abdominal exam: PRESENT: normal bowel sounds, soft. ABSENT: distended, guarding, mass, organolmegaly, rebound, tenderness Rectal exam: PRESENT: deferred Neurological exam: PRESENT: alert, awake, oriented to person, oriented to place, oriented to time, oriented to situation, CN II-XII grossly intact. ABSENT: motor sensory deficit Results Laboratory Results: 09/23/18 04:53 09/23/18 04:53 09/22/18 09/22/18 09/22/18 11:34 11:34 11:34 WBC 11.1 H RBC 4.44 Hgb 15.1 Hct 43.5 MCV 98 H MCH 33.9 H MCHC 34.7 RDW 13.7 Plt Count 149 L Seg Neutrophils % 77.2 Lymphocytes % 12.9 L Monocytes % 8.7 Eosinophils % 0.6 Basophils % 0.6 Absolute Neutrophils 8.6 H Absolute Lymphocytes 1.4 Absolute Monocytes 1.0 Absolute Eosinophils 0.1 Absolute Basophils 0.1 Sodium 138.8 Potassium 3.9 Chloride 106 Carbon Dioxide 23 Anion Gap 10 BUN 11 Creatinine 0.68 Est GFR ( Amer) > 60 Est GFR (Non-Af Amer) > 60 Glucose 123 H Calcium 9.2 Magnesium Total Bilirubin 3.3 H AST 138 H ALT 61 Alkaline Phosphatase 157 H Total Protein 7.8 Albumin 3.6 Blood Type A POSITIVE Antibody Screen NEGATIVE 09/22/18 09/23/18 09/23/18 16:30 04:53 04:53 WBC 11.5 H 8.1 RBC 4.27 L 3.86 L Hgb 14.5 13.1 L Hct 42.0 38.3 MCV 98 H 99 H MCH 33.9 H 34.0 H MCHC 34.4 34.3 RDW 13.6 13.6 Plt Count 143 L 108 L Seg Neutrophils % 79.2 H 66.9 Lymphocytes % 11.8 L 20.5 Monocytes % 7.6 8.7 Eosinophils % 0.8 3.4 Basophils % 0.6 0.5 Absolute Neutrophils 9.1 H 5.4 Absolute Lymphocytes 1.4 1.7 Absolute Monocytes 0.9 0.7 Absolute Eosinophils 0.1 0.3 Absolute Basophils 0.1 0.0 Sodium 140.8 Potassium 4.2 Chloride 112 H Carbon Dioxide 23 Anion Gap 6 BUN 11 Creatinine 0.77 Est GFR ( Amer) > 60 Est GFR (Non-Af Amer) > 60 Glucose 90 Calcium 8.3 L Magnesium 1.8 Total Bilirubin 3.2 H AST 106 H ALT 48 Alkaline Phosphatase 111 Total Protein 6.3 Albumin 2.7 L Blood Type Antibody Screen Impressions: Chest X-Ray 09/22/18 11:25 IMPRESSION: REACTIVE AIRWAY DISEASE VERSUS VIRAL SYNDROME. NO CONSOLIDATION. Abdomen Ultrasound 09/22/18 19:30 IMPRESSION: Hyperechogenic liver as described. copyright 2010 [employer]- All Rights Reserved Assessment & Plan - Diagnosis (1) Hematemesis Is this a current diagnosis for this admission?: Yes Plan: Differentials include alcohol-induced gastritis vs PUD vs variceal in origin. Hb 13.1 today from 15.1. Continue Protonix drip. Going for EGD today. (2) Alcohol use disorder Is this a current diagnosis for this admission?: Yes Plan: Continue banana bag. He required 2 doses of Ativan overnight. (3) Elevated liver enzymes Is this a current diagnosis for this admission?: Yes Plan: Patient has elevated AST, bilirubin and alk phos. INR is also elevated. Abdominal US shows fatty liver. Alcoholic hepatitis unlikely due to absence of fever, abdominal pain and leukocytosis. Will also check hepatitis panel. - Time Time Spent with patient: 15-24 minutes
[2018-09-23] MEDS: NORMAL SALINE 100 ML with PANTOPRAZOLE SODIUM 80 MG IV PRN ×2 (16:44)
[2018-09-23] MEDS: NORMAL SALINE 1000 ML 1,000 ML with POTASSIUM CHLORIDE 20 MEQ, MAGNESIUM SULFATE 8 MEQ,... IV SCH ×5 (17:50)
--- NOTE | 2018-09-23 18:46 | Progress Note ---
Provider Note Provider Note: Patient did well status post EGD. No active bleeding source identified. Continue PPI. Further treatment to be determined by medical physician. I will see the patient again on an as-needed basis. Please renotify with any questions or concerns.
[2018-09-24] MEDS: NORMAL SALINE 100 ML with PANTOPRAZOLE SODIUM 80 MG IV PRN ×2 (00:38)
[2018-09-24 06:36] LABS: ABSOLUTE EOSINOPHILS # (AUTO) 0.2 10^3/uL (0.0-0.6); ABSOLUTE LYMPHOCYTES (AUTO) 1.6 10^3/uL (0.5-4.7); ABSOLUTE MONOCYTES (AUTO) 0.6 10^3/uL (0.1-1.4); ABSOLUTE NEUT (AUTO) 5.2 10^3/uL (1.7-8.2); BASOPHILS % (AUTO) 0.6 % (0-2); EOSINOPHILS % (AUTO) 2.8 % (0-6); HEMATOCRIT 34.5 % (37.9-51.0); HEMOGLOBIN 11.9 g/dL (13.5-17.0); LYMPHOCYTES % (AUTO) 20.6 % (13-45); MEAN CORPUSCULAR HEMOGLOBIN 34.4 pg (27.0-33.4); MEAN CORPUSCULAR HGB CONC 34.5 g/dL (32.0-36.0); MEAN CORPUSCULAR VOLUME 100 fl (80-97); RED BLOOD COUNT 3.46 10^6/uL (4.35-5.55); RED CELL DISTRIBUTION WIDTH 13.6 % (11.5-14.0); TOTAL CELLS COUNTED % (AUTO) 100 %; WHITE BLOOD COUNT 7.6 10^3/uL (4.0-10.5)
[2018-09-24 06:53] LABS: ALANINE AMINOTRANSFERASE 51 U/L (21-72); ALBUMIN 2.5 g/dL (3.5-5.0); ALKALINE PHOSPHATASE 107 U/L (38-126); ANION GAP 5 (5-19); ASPARTATE AMINO TRANSFERASE 111 U/L (17-59); BILIRUBIN,DIRECT 1.5 mg/dL (0.0-0.4); BLOOD UREA NITROGEN 12 mg/dL (7-20); CALCIUM 7.9 mg/dL (8.4-10.2); CARBON DIOXIDE 20 mmol/L (22-30); CHLORIDE 110 mmol/L (98-107); GLUCOSE 99 mg/dL (75-110); PLATELET COUNT 98 10^3/uL (150-450); POTASSIUM 4.1 mmol/L (3.6-5.0); SODIUM 135.1 mmol/L (137-145); TOTAL PROTEIN 5.9 g/dL (6.3-8.2)
[2018-09-24] MEDS: NORMAL SALINE 1000 ML 1,000 ML IV PRN (07:13)
[2018-09-24] MEDS: LORAZEPAM INJ 2 MG/1 ML VIAL IV PRN (12:11)
[2018-09-24 12:33] LABS: ABSOLUTE BASOPHILS # (AUTO) 0.1 10^3/uL (0.0-0.2); ABSOLUTE EOSINOPHILS # (AUTO) 0.2 10^3/uL (0.0-0.6); ABSOLUTE LYMPHOCYTES (AUTO) 1.6 10^3/uL (0.5-4.7); ABSOLUTE MONOCYTES (AUTO) 0.6 10^3/uL (0.1-1.4); ABSOLUTE NEUT (AUTO) 5.9 10^3/uL (1.7-8.2); BASOPHILS % (AUTO) 0.6 % (0-2); EOSINOPHILS % (AUTO) 2.1 % (0-6); HEMATOCRIT 35.6 % (37.9-51.0); HEMOGLOBIN 12.1 g/dL (13.5-17.0); LYMPHOCYTES % (AUTO) 19.5 % (13-45); MEAN CORPUSCULAR HGB CONC 33.9 g/dL (32.0-36.0); MEAN CORPUSCULAR VOLUME 100 fl (80-97); MONOCYTES % (AUTO) 7.3 % (3-13); PLATELET COUNT 124 10^3/uL (150-450); RED BLOOD COUNT 3.55 10^6/uL (4.35-5.55); RED CELL DISTRIBUTION WIDTH 13.4 % (11.5-14.0); SEGMENTED NEUTROPHILS % (AUTO) 70.5 % (42-78); TOTAL CELLS COUNTED % (AUTO) 100 %; WHITE BLOOD COUNT 8.4 10^3/uL (4.0-10.5)
--- NOTE | 2018-09-24 14:42 | PDOC DISCHARGE SUMMARY ---
General - Admit/Disc Date/PCP Admission Date/Primary Care Provider: 09/22/18 15:21 Discharge Date: 09/24/18 - Discharge Diagnosis (1) Hematemesis Is this a current diagnosis for this admission?: Yes (2) Alcohol use disorder Is this a current diagnosis for this admission?: Yes (3) Elevated liver enzymes Is this a current diagnosis for this admission?: Yes - Additional Information Resuscitation Status: Full Code Prescriptions: Pantoprazole Sodium [Protonix] 40 mg PO QAM #60 tablet. Propranolol HCl [Inderal 10 mg Tablet] 10 mg PO Q12 #60 tab Sucralfate [Carafate 1 gm Tablet] 1 gm PO ACHS #40 tablet Home Medications: Pantoprazole Sodium [Protonix] 40 mg PO QAM #60 tablet. 09/24/18 Propranolol HCl [Inderal 10 mg Tablet] 10 mg PO Q12 #60 tab 09/24/18 Sucralfate [Carafate 1 gm Tablet] 1 gm PO ACHS #40 tablet 09/24/18 History of Present Illness History of Present Illness: SONIA ROBERTS is a 38 year old male with no significant PMH aside from alcohol use disorder who came in because of posttussive vomiting. Patient says that he drinks 10 shots of rum a day and has been drinking for 10 years. He says his last drink was yesterday. He says he has been having minimally productive cough in the past 5 days. He does admit to recent sick contacts as a lot of family members are having URTI symptoms at home. He says that yesterday morning, he vomited twice and noted bright red blood on the vomitus (~4 tbsp of blood) on the 2nd episode. He reports having loose stools, 5 episodes/day in the past 3 days. He said he had one episode of dark but non- tarry BM yesterday. There has been no recurrence of bloody vomitus today. He denies any abdominal pain. No nausea or vomiting at this time. No fever or chills. He denies jaundice. Hospital Course Hospital Course: SONIA ROBERTS is a 38 year old male with no significant PMH aside from alcohol use disorder who presented with hematemesis and was admitted for upper GI bleed. He underwent EGD on 09/23/18 which showed early gastric varices, severe gastritis, duodenitis and esophagitis with no active bleeding. He did not have recurrence of hematemesis after EGD. His hemoglobin slightly trended down from 15.1 to 13.1 but this stabilized and he did not have any recurrence of bleeding. He was also on banana bag and ativan prn for alcohol withdrawal. He significantly improved. He was started on propranolol for his early varices and was also discharged on Protonix. He was counseled on alcohol cessation and expressed he is quitting and plans to participate in AA. He did have elevated AST and bilirubin which did trend down. RUQ US was remarkable only for fatty liver. Also recommended checking a hepatitis profile when he follows up with his PCP and he does prefer doing this outpatient. Physical Exam Vital Signs: Temp Pulse Resp BP Pulse Ox 98.0 F 111 H 18 129/77 H 100 09/24/18 11:55 09/24/18 11:55 09/24/18 11:55 09/24/18 11:55 09/24/18 11:55 Intake & Output 09/23/18 09/24/18 09/25/18 06:59 06:59 06:59 Intake Total 1387 3281 1236 Balance 1387 3281 1236 Weight 229 lb 8.019 oz 232 lb 2.348 oz General appearance: PRESENT: no acute distress, well-developed, well-nourished Head exam: PRESENT: atraumatic, normocephalic Eye exam: PRESENT: conjunctiva pink, EOMI, PERRLA. ABSENT: scleral icterus Ear exam: PRESENT: normal external ear exam Mouth exam: PRESENT: moist, tongue midline Neck exam: ABSENT: carotid bruit, JVD, lymphadenopathy, thyromegaly Respiratory exam: PRESENT: clear to auscultation shanique. ABSENT: rales, rhonchi, wheezes Cardiovascular exam: PRESENT: RRR. ABSENT: diastolic murmur, rubs, systolic murmur Pulses: PRESENT: normal dorsalis pedis pul GI/Abdominal exam: PRESENT: normal bowel sounds, soft. ABSENT: distended, guarding, mass, organolmegaly, rebound, tenderness Rectal exam: PRESENT: deferred Neurological exam: PRESENT: alert, awake, oriented to person, oriented to place, oriented to time, oriented to situation, CN II-XII grossly intact. ABSENT: motor sensory deficit Results Laboratory Results: 09/24/18 12:00 09/24/18 05:44 09/24/18 09/24/18 09/24/18 05:44 05:44 12:00 WBC 7.6 8.4 RBC 3.46 L 3.55 L Hgb 11.9 L 12.1 L Hct 34.5 L 35.6 L MCV 100 H 100 H MCH 34.4 H 34.0 H MCHC 34.5 33.9 RDW 13.6 13.4 Plt Count 98 L 124 L Seg Neutrophils % 68.0 70.5 Lymphocytes % 20.6 19.5 Monocytes % 8.0 7.3 Eosinophils % 2.8 2.1 Basophils % 0.6 0.6 Absolute Neutrophils 5.2 5.9 Absolute Lymphocytes 1.6 1.6 Absolute Monocytes 0.6 0.6 Absolute Eosinophils 0.2 0.2 Absolute Basophils 0.0 0.1 Sodium 135.1 L Potassium 4.1 Chloride 110 H Carbon Dioxide 20 L Anion Gap 5 BUN 12 Creatinine 0.70 Est GFR ( Amer) > 60 Est GFR (Non-Af Amer) > 60 Glucose 99 Calcium 7.9 L Total Bilirubin 3.0 H AST 111 H ALT 51 Alkaline Phosphatase 107 Total Protein 5.9 L Albumin 2.5 L Impressions: Chest X-Ray 09/22/18 11:25 IMPRESSION: REACTIVE AIRWAY DISEASE VERSUS VIRAL SYNDROME. NO CONSOLIDATION. Abdomen Ultrasound 09/22/18 19:30 IMPRESSION: Hyperechogenic liver as described. copyright 2010 [employer]- All Rights Reserved Qualifiers - * PATIENT BEING DISCHARGED WITH ANY OF THE FOLLOWING DIAGNOSIS: No
[2018-09-24 16:35] VITALS: BP 123/86
== END 2018-09-24 17:00 | disposition home or self-care (01) | DRG 379 ==
LOC: ER 10:22 → EH 15:21 → 3W 17:17
PROVIDERS: ADMIT Internal Medicine; ATTEND Internal Medicine
PROC: HZ2ZZZZ Detoxification Services for Substance Abuse Treatment (ICD-10-PCS; 2018-09-22)
PROC: 0DB78ZX Excision of Stomach, Pylorus, Via Natural or Artificial Opening Endoscopic, Diagnostic (ICD-10-PCS; 2018-09-23)
PROC: 0DB58ZX Excision of Esophagus, Via Natural or Artificial Opening Endoscopic, Diagnostic (ICD-10-PCS; principal; 2018-09-23 09:30)
PROC: 3E02340 Introduction of Influenza Vaccine into Muscle, Percutaneous Approach (ICD-10-PCS; 2018-09-24)
DX: K92.0 Hematemesis (principal); K29.70 Gastritis, unspecified, without bleeding; K29.80 Duodenitis without bleeding; F10.10 Alcohol abuse, uncomplicated; K21.9 Gastro-esophageal reflux disease without esophagitis; K92.1 Melena; F17.210 Nicotine dependence, cigarettes, uncomplicated; K20.9 Esophagitis, unspecified; K76.0 Fatty (change of) liver, not elsewhere classified; R94.5 Abnormal results of liver function studies; I86.4 Gastric varices; Z72.89 Other problems related to lifestyle; Z23 Encounter for immunization
CPT/HCPCS: 36415; 43239; 71046; 76700; 80053; 80307; 83735; 85025; 85610; 86850; 86900; 86901; 88305; 88342; 90686; 96361; 96374; 99285; J0171; J1200; J1610; J1885; J2060; J2250; J2310; J2405; J3010; J3411; J3475; J3480; J3490; J7030; S0164

== ENCOUNTER 2019-02-19 08:21 | Emergency (ER) | payer SELFPAY ==
[2019-02-19] MEDS ORDERED: NORMAL SALINE 1000 ML 1,000 ML IV ONE (09:51)
[2019-02-19] MEDS ORDERED: THIAMINE HCL 100 MG, FOLIC ACID 1 MG in NORMAL SALINE 250 ML IV ONE ×2 (09:52→13:00)
[2019-02-19] MEDS ORDERED: ONDANSETRON HCL INJ/PF 4 MG/2 ML SDV IV ONE (09:52)
--- NOTE | 2019-02-19 09:54 | ER Document Report ---
ED Medical Screen (RME) - General Chief Complaint: Alcohol Withdrawl Stated Complaint: DIZZINESS Time Seen by Provider: 02/19/19 09:46 Mode of Arrival: Ambulatory Information source: Patient TRAVEL OUTSIDE OF THE [place] IN LAST 30 DAYS: No - HPI Patient complains to provider of: CONCERNED HE IS GOING THROUGH ETOH WITHDRAWL Notes: 02/19/19 09:53 Patient here with concerns for possible alcohol withdrawal. The patient is a former alcoholic. States that he quit drinking alcohol in September and then over the gain again. He is progressively drank more and more time is gone on. Over the weekend he states that he drank a lot more than normal and is feeling bad today. He states that his last drink was last night around 7 PM. He is feeling nauseous and occasionally dizzy and a little shaky. Exam Nontoxic, no distress. Lungs clear and equal throughout. Heart sounds normal. No tremor. No agitation. Plan CBC, CMP, urine, magnesium, lipase. Saline lock, normal saline bolus, thiamine and folic acid. An initial examination was made on the patient as part of the triage process, and it was determined a more comprehensive evaluation was necessary. Initial labs were ordered and patient was transferred to another provider in the ED who assumed care and finished evaluation and plan. - Related Data Allergies/Adverse Reactions: cefaclor [From Ceclor] Allergy (Verified 02/19/19 08:22) Past Medical History - Social History Drug Abuse: None Neurological Medical History: Denies: Hx Seizures Renal/ Medical History: Denies: Hx Peritoneal Dialysis Past Surgical History: Reports: Hx Tonsillectomy Physical Exam - Vital signs Vitals: Temp Pulse Resp BP Pulse Ox 98.1 F 72 18 163/96 H 99 02/19/19 08:25 02/19/19 08:25 02/19/19 08:25 02/19/19 08:25 02/19/19 08:25 Course - Vital Signs Vital signs: Temp Pulse Resp BP Pulse Ox 98.1 F 72 18 163/96 H 99 02/19/19 08:25 02/19/19 08:25 02/19/19 08:25 02/19/19 08:25 02/19/19 08:25
[2019-02-19 10:29] LABS: ABSOLUTE BASOPHILS # (AUTO) 0.1 10^3/uL (0.0-0.2); ABSOLUTE EOSINOPHILS # (AUTO) 0.2 10^3/uL (0.0-0.6); ABSOLUTE LYMPHOCYTES (AUTO) 1.4 10^3/uL (0.5-4.7); ABSOLUTE MONOCYTES (AUTO) 0.8 10^3/uL (0.1-1.4); ABSOLUTE NEUT (AUTO) 4.1 10^3/uL (1.7-8.2); BASOPHILS % (AUTO) 0.9 % (0-2); EOSINOPHILS % (AUTO) 3.2 % (0-6); HEMATOCRIT 42.9 % (37.9-51.0); HEMOGLOBIN 13.4 g/dL (13.5-17.0); LYMPHOCYTES % (AUTO) 21.7 % (13-45); MEAN CORPUSCULAR HEMOGLOBIN 23.5 pg (27.0-33.4); MEAN CORPUSCULAR HGB CONC 31.3 g/dL (32.0-36.0); MEAN CORPUSCULAR VOLUME 75 fl (80-97); MONOCYTES % (AUTO) 12.5 % (3-13); PLATELET COUNT 174 10^3/uL (150-450); RED BLOOD COUNT 5.73 10^6/uL (4.35-5.55); SEGMENTED NEUTROPHILS % (AUTO) 61.7 % (42-78); TOTAL CELLS COUNTED % (AUTO) 100 %; WHITE BLOOD COUNT 6.6 10^3/uL (4.0-10.5)
[2019-02-19 10:33] LABS: APPEARANCE,URINE CLEAR; BILIRUBIN,URINE NEGATIVE (NEGATIVE); COLOR,URINE YELLOW; GLUCOSE, URINE NEGATIVE (NEGATIVE); KETONES,URINE NEGATIVE (NEGATIVE); LEUKOCYTE ESTERASE,URINE NEGATIVE (NEGATIVE); NITRITE,URINE NEGATIVE (NEGATIVE); PROTEIN,URINE NEGATIVE (NEGATIVE); URINE SPECIFIC GRAVITY 1.014; UROBILINOGEN,URINE NEGATIVE mg/dL (<2.0)
[2019-02-19 10:50] LABS: ALANINE AMINOTRANSFERASE 72 U/L (21-72); ALKALINE PHOSPHATASE 124 U/L (38-126); ANION GAP 8 (5-19); ASPARTATE AMINO TRANSFERASE 130 U/L (17-59); BILIRUBIN,DIRECT 0.6 mg/dL (0.0-0.4); BILIRUBIN,TOTAL 1.7 mg/dL (0.2-1.3); BLOOD UREA NITROGEN 4 mg/dL (7-20); CALCIUM 9.6 mg/dL (8.4-10.2); CARBON DIOXIDE 28 mmol/L (22-30); CHLORIDE 105 mmol/L (98-107); GLUCOSE 119 mg/dL (75-110); LIPASE 295.5 U/L (23-300); POTASSIUM 4.3 mmol/L (3.6-5.0); SODIUM 141.1 mmol/L (137-145); TOTAL PROTEIN 8.1 g/dL (6.3-8.2)
[2019-02-19 10:51] LABS: ALCOHOL < 10 mg/dL (NONE DETECTED)
[2019-02-19] MEDS ORDERED: LORAZEPAM 1 MG TABLET PO ONE (11:40)
--- NOTE | 2019-02-19 11:41 | ER Document Report ---
ED General - General Chief Complaint: Alcohol Withdrawl Stated Complaint: DIZZINESS Time Seen by Provider: 02/19/19 09:46 Primary Care Provider: [facility] [Provider Group] - Follow up as needed Mode of Arrival: Ambulatory Notes: 38-year-old male to the emergency department chief complaint of alcohol withdrawal. Patient states that he would like to enter into treatment. Denies any hallucinations. Not tachycardic. Denies any other major symptoms other than having some dizziness and some nausea and mild abdominal discomfort. Denies suicidal ideation or homicidal ideation. No significant depression. States that he has been through withdrawal before. States that his mother is speaking with some outpatient treatment facilities at this time. States that he is ready to quit drinking. He is willing to do oral medications at this time. TRAVEL OUTSIDE OF THE [place] IN LAST 30 DAYS: No - HPI Onset: Yesterday Onset/Duration: Gradual Severity: Mild Pain Level: 1 Associated symptoms: None - Related Data Allergies/Adverse Reactions: cefaclor [From Ceclor] Allergy (Verified 02/19/19 08:22) Past Medical History - General Information source: Patient - Social History Smoking Status: Current Every Day Smoker Frequency of alcohol use: Heavy Drug Abuse: None Lives with: Family Family History: Reviewed & Not Pertinent Patient has suicidal ideation: No Patient has homicidal ideation: No Neurological Medical History: Denies: Hx Seizures Renal/ Medical History: Denies: Hx Peritoneal Dialysis Past Surgical History: Reports: Hx Tonsillectomy Review of Systems - Review of Systems Notes: Constitutional: denies: Chills, Diaphoresis, Fever, Malaise, Weakness EENT: denies: Eye discharge, Blurred vision, Tearing, Double vision, Nose congestion, Nose discharge, Throat swelling, Mouth pain Cardiovascular: denies: Palpitations, Heart racing, Orthopnea, Dyspnea, Chest pain Respiratory: denies: Cough, Hurts to breathe, Wheezing, Shortness of breath Gastrointestinal: denies: Abdominal pain, Diarrhea, + nausea, Black stools, bright red blood in stool Genitourinary: denies: Burning, Dysuria, Discharge, Frequency, Flank pain, Hematuria Musculoskeletal: denies: Joint pain, Joint swelling, Muscle pain, Muscle stiffness, back pain Hematologic/Lymphatic: denies: Anemia, Easy bleeding, Easy bruising, Blood clots Neurological/Psychological: denies: Confusion, Dementia, Depression, Loss of consciousness Skin: No lesions, no masses, no skin breakdown, no abscesses Physical Exam - Vital signs Vitals: Temp Pulse Resp BP Pulse Ox 98.1 F 72 18 163/96 H 99 02/19/19 08:25 02/19/19 08:25 02/19/19 08:25 02/19/19 08:25 02/19/19 08:25 Interpretation: Normal - General General appearance: Appears well, Alert - HEENT Head: Normocephalic, Atraumatic Eyes: Normal Pupils: PERRL - Respiratory Respiratory status: No respiratory distress Chest status: Nontender Breath sounds: Normal Chest palpation: Normal - Cardiovascular Rhythm: Regular Heart sounds: Normal auscultation Murmur: No - Abdominal Inspection: Normal Distension: No distension Bowel sounds: Normal Tenderness: Nontender Organomegaly: No organomegaly - Back Back: Normal, Nontender - Extremities General upper extremity: Normal inspection, Nontender, Normal color, Normal ROM, Normal temperature General lower extremity: Normal inspection, Nontender, Normal color, Normal ROM, Normal temperature, Normal weight bearing. No: Delmy's sign - Neurological Neuro grossly intact: Yes Cognition: Normal Orientation: AAOx4 [place] Coma Scale Eye Opening: Spontaneous [place] Coma Scale Verbal: Oriented [place] Coma Scale Motor: Obeys Commands [place] Coma Scale Total: 15 Speech: Normal Motor strength normal: LUE, RUE, LLE, RLE Sensory: Normal - Psychological Associated symptoms: Normal affect, Normal mood - Skin Skin Temperature: Warm Skin Moisture: Dry Skin Color: Normal Course - Re-evaluation Re-evalutation: 02/19/19 12:54 Laboratory 02/19/19 02/19/19 02/19/19 10:13 10:13 10:13 WBC 6.6 RBC 5.73 H Hgb 13.4 L Hct 42.9 MCV 75 L MCH 23.5 L MCHC 31.3 L RDW 20.0 H Plt Count 174 Seg Neutrophils % 61.7 Lymphocytes % 21.7 Monocytes % 12.5 Eosinophils % 3.2 Basophils % 0.9 Absolute Neutrophils 4.1 Absolute Lymphocytes 1.4 Absolute Monocytes 0.8 Absolute Eosinophils 0.2 Absolute Basophils 0.1 Sodium 141.1 Potassium 4.3 Chloride 105 Carbon Dioxide 28 Anion Gap 8 BUN 4 L Creatinine 0.71 Est GFR ( Amer) > 60 Est GFR (Non-Af Amer) > 60 Glucose 119 H Calcium 9.6 Magnesium 1.4 L Total Bilirubin 1.7 H Direct Bilirubin 0.6 H Neonat Total Bilirubin Not Reportable Neonat Direct Bilirubin Not Reportable Neonat Indirect Bili Not Reportable AST 130 H ALT 72 Alkaline Phosphatase 124 Total Protein 8.1 Albumin 4.0 Lipase 295.5 Urine Color YELLOW Urine Appearance CLEAR Urine pH 9.0 Ur Specific [place] 1.014 Urine Protein NEGATIVE Urine Glucose (UA) NEGATIVE Urine Ketones NEGATIVE Urine Blood NEGATIVE Urine Nitrite NEGATIVE Urine Bilirubin NEGATIVE Urine Urobilinogen NEGATIVE Ur Leukocyte Esterase NEGATIVE Urine WBC (Auto) 0 Urine RBC (Auto) 0 Squamous Epi Cells Auto <1 Urine Mucus (Auto) RARE Urine Ascorbic Acid NEGATIVE Serum Alcohol < 10 02/19/19 12:54 Patient is mildly hypertensive but not tachycardic, not febrile, no hallucinations, in no acute distress at this time. Very unlikely patient is going into active DTs. Apparently he has outpatient arrangements for detox. I am going to go ahead and start on some benzodiazepines at this time but I do believe patient is stable for outpatient treatment. Patient would like this. Will discharge at this time in stable condition. - Vital Signs Vital signs: Temp Pulse Resp BP Pulse Ox 98.1 F 72 18 163/96 H 99 02/19/19 08:25 02/19/19 08:25 02/19/19 08:25 02/19/19 08:25 02/19/19 08:25 - Laboratory Result Diagrams: 02/19/19 10:13 02/19/19 10:13 Laboratory results interpreted by me: 02/19/19 02/19/19 10:13 10:13 RBC 5.73 H Hgb 13.4 L MCV 75 L MCH 23.5 L MCHC 31.3 L RDW 20.0 H BUN 4 L Glucose 119 H Magnesium 1.4 L Total Bilirubin 1.7 H Direct Bilirubin 0.6 H AST 130 H Discharge - Discharge Clinical Impression: Alcohol withdrawal Qualifiers: Complication of substance-induced condition: uncomplicated Qualified Code(s): F10.230 - Alcohol dependence with withdrawal, uncomplicated Condition: Good Disposition: HOME, SELF-CARE Instructions: Chronic Alcoholism ([facility]), Gastritis ([facility]) Additional Instructions: Please take the medication as prescribed. Do not drink alcohol or do other illicit drugs with this medication as it can cause severe respiratory depression and cause . Prescriptions: Chlordiazepoxide HCl [Librium 25 mg Capsule] 1 cap PO QID #30 capsule Referrals: [facility] [Provider Group] - Follow up as needed
[2019-02-19 14:16] VITALS: BP 131/81
== END 2019-02-19 14:10 | disposition home or self-care (01) ==
LOC: ER 08:21
DX: F10.230 Alcohol dependence with withdrawal, uncomplicated (principal); R42 Dizziness and giddiness; R11.0 Nausea; F17.200 Nicotine dependence, unspecified, uncomplicated
CPT/HCPCS: 99284; 96361; 96375; 96365; 96366; 36415; 80307; 83690; 83735; 85025; 80053; 81001; J3490; J3411; J2405; J7030; J7050